=== PATIENT | male | born 1985 | race Caucasian/White ===

== ENCOUNTER 2017-09-02 12:51 | Emergency (ER) | payer OTHER ==
[~2017-09-02] VITALS: Ht 190.5 cm; Wt 88.5 kg
[~2017-09-02 12:51] MED LIST: BACTRIM DS TAB1 EACH PO; FORTESTA60 GM; KEFLEX500 MG PO; NAPROSYN500 MG PO; NOHOMEMEDICATIONS; NORCO 5-325 TA1 EACH PO; ROBAXIN500 MG PO; TESSALON200 MG PO; TRAMADOL 50 MG50 MG PO; ZPAK PO
[2017-09-02 13:13] LABS: URINE BLOOD TRACE (Negative); URINE CLARITY CLEAR; URINE COLOR YELLOW; URINE GLUCOSE-RANDOM NEGATIVE (Negative); URINE KETONES 1+ (Negative); URINE LEUKOCYTES-REFLEX NEGATIVE (Negative); URINE NITRITE-REFLEX NEGATIVE (Negative); URINE PROTEIN 2+ (Negative); URINE UROBILINOGEN 0.2 E.U./dl (0.2-1.0)
[2017-09-02 13:15] LABS: ICTOTEST (BILI CONFIRMATORY) Negative (Negative); URINE BILIRUBIN 1+ (Negative)
[2017-09-02 13:23] LABS: BACTERIA-REFLEX 1-9 Few /HPF (None Seen); CASTS None Seen /LPF (None Seen); CRYSTALS None Seen /LPF (None Seen); MUCUS 0-3 Light strn/LPF (None Seen); SQUAMOUS 0-3 Few /LPF (0-3); URINE RBC 3-10 Few /HPF (0-2); URINE WBC-REFLEX 0-5 Rare /HPF (0-5)
[2017-09-02 13:28] LABS: HEMATOCRIT 41.8 % (42.0-52.0); HEMOGLOBIN 14.5 gm/dL (14.0-18.0); MCH 30.7 pg (26.0-34.0); MCHC 34.6 g/dL (28.0-37.0); MCV 88.7 fL (80.0-100.0); MPV 8.7 fl. (7.2-11.1); NUCLEATED RBCS 0 /100WBC; PLATELET COUNT* 256 thou/uL (150-400); RBC 4.72 mil/uL (4.50-6.00); RDW-CV 13.3 % (10.5-14.5); WBC 12.8 thou/uL (4.0-11.0)
[2017-09-02 13:35] LABS: CALCIUM 8.9 mg/dL (8.5-10.1); POTASSIUM 3.2 mmol/L (3.5-5.1)
[2017-09-02 13:39] LABS: ALBUMIN 3.6 g/dL (3.4-5.0); TOTAL BILIRUBIN 0.8 mg/dL (<0.1-1.0); TOTAL PROTEIN 7.5 g/dL (6.4-8.2)
[2017-09-02 13:40] LABS: ABSOLUTE EOSINOPHILS 0.1 thou/uL (0.0-0.7); ABSOLUTE MONOCYTES 0.4 thou/uL (0.0-1.2); ABSOLUTE NEUTROPHILS 11.3 thou/uL (1.6-8.1); PLATELET ESTIMATE ADEQUATE
[2017-09-02] MEDS ORDERED: VENTOLIN HFA 1818 GM INH (14:29)
[2017-09-02] MEDS ORDERED: LEVAQUIN 750 M750 MG PO (14:29)
[2017-09-02] MEDS ORDERED: SPACERADULT INH (14:29)
[2017-09-02] MEDS ORDERED: PREDNISONE 20 M20 MG PO (14:29)
[2017-09-02 14:42] VITALS: BP 142/87
== END 2017-09-02 14:43 | disposition home or self-care (01) ==
LOC: M.ERS 12:51
PROVIDERS: Physician Assistant
DX: J18.9 Pneumonia, unspecified organism (principal); B34.9 Viral infection, unspecified; G43.909 Migraine, unspecified, not intractable, without status migrainosus; Z86.79 Personal history of other diseases of the circulatory system

== ENCOUNTER → 2017-09-15 | Outpatient (CLI) | payer OTHER ==
[~2017-09-15] MED LIST changes: +DOXYCYCLINE 10100 MG PO; +IBUPROFEN 800800 M1 PO; +KETOCONAZOLE15 GM TOP; +LEVAQUIN 750 M750 MG PO; +PREDNISONE 20 M20 MG PO; +SPACERADULT INH; +TERBINAFINE HC250 MG PO; +VENTOLIN HFA 1818 GM INH
== END ==
LOC: M.RAD 13:22
DX: J18.9 Pneumonia, unspecified organism (principal)

== ENCOUNTER 2017-10-29 20:38 | Emergency (ER) | payer OTHER ==
[~2017-10-29] VITALS: Ht 190.5 cm; Wt 86.2 kg
[~2017-10-29 20:38] MED LIST changes: -DOXYCYCLINE 10100 MG PO; -IBUPROFEN 800800 M1 PO; -KETOCONAZOLE15 GM TOP; -TERBINAFINE HC250 MG PO
[2017-10-29 20:57] VITALS: BP 143/75
[2017-10-29] MEDS ORDERED: IBUPROFEN 800800 M1 PO (21:07)
== END 2017-10-29 21:16 | disposition home or self-care (01) ==
LOC: M.ERS 20:38
DX: S76.812A Strain of other specified muscles, fascia and tendons at thigh level, left thigh, initial encounter (principal); G43.909 Migraine, unspecified, not intractable, without status migrainosus; X50.0XXA Overexertion from strenuous movement or load, initial encounter; Y93.89 Activity, other specified; Y92.89 Other specified places as the place of occurrence of the external cause; Y99.8 Other external cause status

== ENCOUNTER 2018-04-27 05:10 | Emergency (ER) | payer OTHER ==
[~2018-04-27] VITALS: Ht 190.5 cm; Wt 88.5 kg
[~2018-04-27 05:10] MED LIST changes: +IBUPROFEN 800800 M1 PO
[2018-04-27 05:13] VITALS: BP 159/99
[2018-04-27] MEDS ORDERED: DOXYCYCLINE 10100 MG PO (05:27)
[2018-04-27] MEDS ORDERED: KETOCONAZOLE15 GM TOP (05:27)
[2018-04-27] MEDS ORDERED: TERBINAFINE HC250 MG PO (05:27)
== END 2018-04-27 05:35 | disposition home or self-care (01) ==
LOC: M.ERS 05:10
DX: B35.3 Tinea pedis (principal); L03.116 Cellulitis of left lower limb; G43.909 Migraine, unspecified, not intractable, without status migrainosus

== ENCOUNTER 2018-09-04 22:58 | Emergency (ER) | payer BC ==
[~2018-09-04] VITALS: Ht 190.5 cm; Wt 86.2 kg
[~2018-09-04 22:58] MED LIST changes: +DOXYCYCLINE 10100 MG PO; +KETOCONAZOLE15 GM TOP; +TERBINAFINE HC250 MG PO
[2018-09-04] MEDS ORDERED: AMOXICILLIN875 MG PO (23:13)
[2018-09-04 23:27] VITALS: BP 136/98
== END 2018-09-04 23:30 | disposition home or self-care (01) ==
LOC: M.ERS 22:58
DX: H66.012 Acute suppurative otitis media with spontaneous rupture of ear drum, left ear (principal); G43.909 Migraine, unspecified, not intractable, without status migrainosus

== ENCOUNTER 2019-11-27 03:12 | Emergency (ER) | payer BC ==
[~2019-11-27] VITALS: Ht 190.5 cm; Wt 86.2 kg
[~2019-11-27 03:12] MED LIST changes: +AMOXICILLIN875 MG PO
[2019-11-27 04:07] LABS: ABSOLUTE BASOPHILS 0.1 thou/uL (0.0-0.2); ABSOLUTE EOSINOPHILS 0.6 thou/uL (0.0-0.7); ABSOLUTE LYMPHOCYTES 4.4 thou/uL (0.8-5.3); ABSOLUTE NEUTROPHILS 6.4 thou/uL (1.6-8.1); BASOPHILS 0.6 %; EOSINOPHILS 4.6 %; HEMATOCRIT 43.2 % (42.0-52.0); HEMOGLOBIN 15.1 gm/dL (14.0-18.0); LYMPHOCYTES 35.1 %; MCH 31.3 pg (26.0-34.0); MCV 89.3 fL (80.0-100.0); MONOCYTES 7.9 %; MPV 8.5 fl. (7.2-11.1); NUCLEATED RBCS 0 /100WBC; PLATELET COUNT* 343 thou/uL (150-400); POLYS 51.8 %; RBC 4.83 mil/uL (4.50-6.00); RDW-CV 13.7 % (10.5-14.5); WBC 12.4 thou/uL (4.0-11.0)
[2019-11-27 04:12] LABS: CALCIUM 8.8 mg/dL (8.5-10.1); POTASSIUM 3.2 mmol/L (3.5-5.1)
[2019-11-27 04:18] LABS: TOTAL BILIRUBIN 0.4 mg/dL (<0.1-1.0)
[2019-11-27] MEDS ORDERED: PREDNISONE50 MG PO (06:10)
[2019-11-27] MEDS ORDERED: DIPHENHIST50 MG PO (06:10)
[2019-11-27] MEDS ORDERED: EPIPEN 2-P0.3 MG/0.3 IM (06:10)
[2019-11-27 06:50] VITALS: BP 135/80
--- NOTE | 2019-11-27 10:41 | EKG ---
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
== END 2019-11-27 06:50 | disposition home or self-care (01) ==
LOC: M.ERS 03:12
PROVIDERS: Emergency Medicine Emergency Medical Services
DX: T63.441A Toxic effect of venom of bees, accidental (unintentional), initial encounter (principal); R07.0 Pain in throat; Z91.030 Bee allergy status; Y92.89 Other specified places as the place of occurrence of the external cause